=== PATIENT | female | born 1985 | race Hispanic/Latino ===

== ENCOUNTER 2020-01-02 20:44 | Observation (INO) | payer BC ==
[~2020-01-02] VITALS: Ht 167.6 cm; Wt 98.0 kg
[2020-01-02] MEDS ORDERED: LACTATED RINGERS 1000ML 1,000 ML IV PRN (21:06)
[2020-01-02 21:53] LABS: APPEARANCE,URINE Clear (CLEAR); BILIRUBIN,URINE Negative (NEGATIVE); COLOR,URINE Dark Yellow (YELLOW); GLUCOSE, URINE (UA) Negative (NEGATIVE); KETONES,URINE Negative (NEGATIVE); LEUKOCYTE ESTERASE ,URINE Large (NEGATIVE); NITRATE,URINE Negative (NEGATIVE); OCCULT BLOOD,URINE Negative (NEGATIVE); PH,URINE 6.5 (5.0-8.0); PROTEIN,URINE Negative (NEGATIVE)
[2020-01-02 22:00] LABS: AMPHET/METH SCREEN,URINE NEGATIVE (NEGATIVE); BARBITURATE SCREEN, URINE NEGATIVE (NEGATIVE); BENZODIAZEPINES SCREEN,URINE NEGATIVE (NEGATIVE); CANNABINOID SCREEN,URINE NEGATIVE (NEGATIVE); COCAINE SCREEN,URINE NEGATIVE (NEGATIVE); OPIATE SCREEN,URINE NEGATIVE (NEGATIVE); PHENCYCLIDINE SCREEN,URINE NEGATIVE (NEGATIVE)
[2020-01-02 22:04] LABS: RBC,URINE 0-1 /HPF (0-1)
[2020-01-02 22:05] LABS: BACTERIA,URINE Few /HPF (None Seen); SQUAMOUS EPITHELIAL CELL,UR Few /HPF (0-2)
[2020-01-02] MEDS ORDERED: CITRIC ACID/SODIUM CITRATE 30 ML UDCUP ONE (22:07)
[2020-01-02] MEDS ORDERED: CITRIC ACID/SODIUM CITRATE 30 ML UDCUP PO SCH (22:15)
== END 2020-01-02 23:00 | disposition home or self-care (01) ==
LOC: EDH 20:44 → LDH 21:12
PROVIDERS: ADMIT Obstetrics & Gynecology; ATTEND Obstetrics & Gynecology
DX: O26.893 Other specified pregnancy related conditions, third trimester (principal); R10.13 Epigastric pain; Z3A.38 38 weeks gestation of pregnancy
CPT/HCPCS: 80305; 81001; 87088; 99283; G0378 ×2

== ENCOUNTER 2020-03-19 01:55 | Inpatient (IN) | payer BC, MEDICAID ==
[~2020-03-19] VITALS: Ht 167.6 cm; Wt 103.4 kg
[2020-03-19 02:36] LABS: APPEARANCE,URINE Clear (CLEAR); BILIRUBIN,URINE Negative (NEGATIVE); COLOR,URINE Dark Yellow (YELLOW); GLUCOSE, URINE (UA) Negative (NEGATIVE); KETONES,URINE Negative (NEGATIVE); LEUKOCYTE ESTERASE ,URINE Moderate (NEGATIVE); NITRATE,URINE Negative (NEGATIVE); OCCULT BLOOD,URINE Large (NEGATIVE); PROTEIN,URINE POS 1+ mg/dL (NEGATIVE)
[2020-03-19 02:45] LABS: RBC,URINE 26-50 /HPF (0-1)
[2020-03-19 02:47] LABS: BACTERIA,URINE Moderate /HPF (None Seen)
[2020-03-19 03:12] VITALS: BP 139/97
[2020-03-19] MEDS ORDERED: ASCO500C18 PO (03:16)
[2020-03-19] MEDS ORDERED: PREN-196 PO (03:16)
[2020-03-19 03:23] LABS: BASOPHILS % (AUTO) 0.7 % (0.0-5.0); EOSINOPHILS % (AUTO) 0.4 % (0.0-8.0); HEMATOCRIT 39.4 % (36-48); LYMPHOCYTES % (AUTO) 20.8 % (21.0-51.0); MEAN CORPUSCULAR HEMOGLOBIN 29.7 pg (27.0-33.0); MEAN CORPUSCULAR VOLUME 87.4 fL (79-99); MONOCYTES % (AUTO) 7.4 % (3.0-13.0); NEUTROPHILS % (AUTO) 70.3 % (40.0-77.0); PLATELET COUNT (AUTO) 287 K/uL (130-400); RED BLOOD CELL COUNT(AUTO) 4.51 MIL/uL (4.00-5.50); WHITE BLOOD COUNT (AUTO) 10.6 K/uL (4.8-10.8)
[2020-03-19 03:39] LABS: ALBUMIN 2.6 g/dL (3.5-5.0); BILIRUBIN,TOTAL 0.9 mg/dL (0.2-1.0); CREATININE 0.8 mg/dL (0.5-1.5); POTASSIUM 4.2 mmol/L (3.5-5.1); TOTAL PROTEIN, SERUM 6.5 g/dL (6.0-8.3); URIC ACID 4.8 mg/dL (2.6-7.2)
[2020-03-19 03:56] LABS: INR 0.89 (0.85-1.15); PARTIAL THROMBOPLASTIN TIME 26.7 SEC (26.3-35.5); PROTHROMBIN TIME 9.7 SEC (9.6-11.6)
[2020-03-19] MEDS ORDERED: LACTATED RINGERS 1000ML 1,000 ML IV PRN (03:59)
[2020-03-19] MEDS ORDERED: ROPIVACAINE 0.2% 100ML VIAL 100 ML EP SCH (04:00)
[2020-03-19] MEDS ORDERED: NALOXONE HCL 0.4 MG/1 ML ML IV PRN (04:00)
[2020-03-19] MEDS ORDERED: BUTORPHANOL TARTRATE 2 MG/ML IVP PRN (04:00)
[2020-03-19] MEDS ORDERED: LACTATED RINGERS 500 ML 500 ML IV PRN (04:00)
[2020-03-19] MEDS ORDERED: EPHEDRINE SULFATE 50 MG/ML AMPULE IVP PRN (04:00)
[2020-03-19] MEDS: MISOPROSTOL 100 MCG TABLET VG SCH ×2 (04:18→20:35)
[2020-03-19] MEDS ORDERED: OXYTOCIN-LR 20 UNITS/1000 ML 1,000 ML IV SCH (14:15)
[2020-03-19] MEDS: LACTATED RINGERS 1000ML 1,000 ML IV SCH (23:30)
[2020-03-20] MEDS: MISOPROSTOL 100 MCG TABLET VG SCH ×3 (02:52→08:00)
[2020-03-20] MEDS: LACTATED RINGERS 1000ML 1,000 ML IV SCH (05:25)
[2020-03-20] MEDS ORDERED: OXYTOCIN 10 USP UNITS/ML 20 UNIT in LACTATED RINGERS 1000ML 1,000 ML IV SCH (07:00)
[2020-03-20 07:18] LABS: HEPATITIS Bs ANTIGEN SCREEN P Negative (Negative)
[2020-03-20] MEDS ORDERED: LACTATED RINGERS 1000ML 1,000 ML IV SCH ×2 (11:15→14:45)
[2020-03-20] MEDS ORDERED: METHYLERGONOVINE MALEATE 0.2 MG/1 ML ML IM PRN (11:15)
[2020-03-20] MEDS ORDERED: CALDOLOR 800MG+NS 250ML 250 ML IV PRN (11:15)
[2020-03-20] MEDS ORDERED: CEFAZOLIN SODIUM 1 GM VIAL IVP PRN ×2 (11:15→14:45)
[2020-03-20] MEDS ORDERED: DURAMORPH PF1 MG/ML 10ML AMP IV ONE (14:37)
[2020-03-20] MEDS ORDERED: FENTANYL CITRATE PF 50 MCG/1 ML 2ML VIAL ONE (14:37)
[2020-03-20] MEDS ORDERED: PROMETHAZINE HCL 25 MG/ML 1ML AMPULE IM PRN (14:45)
[2020-03-20] MEDS ORDERED: MEASLES/MUMPS/RUBELLA VACCINE, LIVE 0.5 ML/VIAL SQ SCH (14:45)
[2020-03-20] MEDS ORDERED: HYDROCODONE/ACETAMINOPHEN 5/325 MG TAB PO PRN (14:45)
[2020-03-20] MEDS ORDERED: OXYTOCIN-LR 20 UNITS/1000 ML 1,000 ML IV PRN (14:45)
[2020-03-20] MEDS ORDERED: BISACODYL 10 MG SUPP.RECT RC PRN (14:45)
[2020-03-20] MEDS ORDERED: DIPH,PERTUSS(ACELL),TET VAC/PF 0.5 ML VIAL IM PRN (14:45)
[2020-03-20] MEDS: IBUPROFEN 800 MG TAB PO SCH (14:45)
[2020-03-20] MEDS ORDERED: ACETAMINOPHEN-CODEINE 300/30MG TAB PO PRN (14:45)
[2020-03-20] MEDS ORDERED: ACETAMINOPHEN EXTRA STRENGTH 500 MG TABLET PO PRN (14:45)
[2020-03-20] MEDS ORDERED: MEASLES/MUMPS/RUBELLA VACCINE, LIVE 0.5 ML/VIAL SQ PRN (14:45)
[2020-03-20] MEDS ORDERED: DIPHENHYDRAMINE HCL 25 MG CAPSULE PO PRN (14:45)
[2020-03-20] MEDS ORDERED: DIPH,PERTUSS(ACELL),TET VAC/PF 0.5 ML VIAL IM SCH (14:45)
[2020-03-20] MEDS ORDERED: MEPERIDINE-PF 75 MG/ML SYG IM PRN (14:45)
[2020-03-20] MEDS ORDERED: DEXTROSE 5 %-0.45 % NACL 1,000 ML IV PRN (14:45)
[2020-03-20] MEDS ORDERED: LANOLIN 30GM OINTMENT TP PRN (14:45)
[2020-03-20] MEDS ORDERED: SODIUM CHLORIDE 0.9% 10 ML VIAL IVP PRN (14:45)
[2020-03-20] MEDS ORDERED: METOCLOPRAMIDE 10 MG/2 ML VIAL ONE ×2 (15:08→15:38)
[2020-03-20] MEDS ORDERED: PHENYLEPHRINE HCL 10 MG/ML 1ML VIAL IV ONE (15:38)
[2020-03-20] MEDS ORDERED: ONDANSETRON HCL 4 MG/2 ML VIAL IVP PRN (16:15)
[2020-03-20] MEDS ORDERED: NALOXONE HCL 0.4 MG/1 ML ML IVP PRN ×3 (16:15)
[2020-03-20] MEDS ORDERED: LORATADINE 10 MG TABLET PO PRN (16:15)
[2020-03-20 17:59] VITALS: BP 132/78
[2020-03-20 20:14] VITALS: BP 119/78
[2020-03-20] MEDS: DOCUSATE SODIUM 100 MG CAP PO SCH (20:49)
[2020-03-20] MEDS: SIMETHICONE 80 MG TAB.CHEW PO PRN (20:49)
[2020-03-20] MEDS: CALDOLOR 800MG+NS 250ML 250 ML IV SCH (23:02)
[2020-03-20 23:33] VITALS: BP 108/53
--- NOTE | 2020-03-21 02:45 | NUR ---
Receiving pt from Estephania Santoyo LVN. Pt awake & alert, denies pain or discomfort at present, IV D5 1/2 NS infusing without redness or edema to iv site. Luis care given & luis pads changed, fundus firm @[email or web address], incision without redness or edema noted, without discharge noted; informing normal rubra that will decrease each day, normal sensation of gushing with changing position or standing from lying position; pt voices understanding & agrees to plan. Encouraging to call for assistance, questions or concerns, to continue freq position change & offering pain meds as needed. Pt voices understanding denies need for pain med at present
[2020-03-21 03:41] VITALS: BP 117/69
--- NOTE | 2020-03-21 06:15 | NUR ---
Explaining plan for f/c removal, instructing to call with urge to void, pt agrees. F/C easily removed, 500ml urine noted; luis care given & changing luis pads, [email or web address] [email or web address], scant rubra noted.
[2020-03-21] MEDS: CALDOLOR 800MG+NS 250ML 250 ML IV SCH (06:21)
[2020-03-21] MEDS ORDERED: LORATADINE 10 MG TABLET PO PRN (06:30)
[2020-03-21] MEDS ORDERED: DiphenhydrAMINE HCL 50 MG/ML VIAL IVP PRN (06:30)
[2020-03-21] MEDS ORDERED: EPHEDRINE SULFATE 50 MG/ML AMPULE IVP PRN (06:30)
[2020-03-21] MEDS ORDERED: ONDANSETRON HCL 4 MG/2 ML VIAL IVP PRN (06:30)
[2020-03-21 07:41] VITALS: BP 130/80
[2020-03-21] MEDS: SIMETHICONE 80 MG TAB.CHEW PO PRN (08:02)
[2020-03-21] MEDS: DOCUSATE SODIUM 100 MG CAP PO SCH (08:02)
[2020-03-21] MEDS ORDERED: LIDOCAINE 5% TOPICAL PATCH TP SCH (09:00)
[2020-03-21 11:29] VITALS: BP 106/59
[2020-03-21] MEDS: IBUPROFEN 800 MG TAB PO SCH (15:07)
--- NOTE | 2020-03-21 19:45 | NUR ---
pt. and baby taken to car via wc by Karissa (PCP), pt. denied pain and discomfort.
== END 2020-03-21 20:00 | disposition home or self-care (01) | DRG 788 ==
LOC: EDH 01:55 → LDH 01:56 → OBSVTOIN 01:56 → WSH 03-20 18:01
PROVIDERS: ADMIT Obstetrics & Gynecology; ATTEND Obstetrics & Gynecology
PROC: 3E0234Z Introduction of Serum, Toxoid and Vaccine into Muscle, Percutaneous Approach (ICD-10-PCS; 2020-03-20)
PROC: 10D00Z1 Extraction of Products of Conception, Low, Open Approach (ICD-10-PCS; principal; 2020-03-20 14:50)
DX: O14.04 Mild to moderate pre-eclampsia, complicating childbirth (principal); Z3A.39 39 weeks gestation of pregnancy; Z37.0 Single live birth; Z23 Encounter for immunization; O62.2 Other uterine inertia
CPT/HCPCS: 36415; 59510; 80053; 81001; 84550; 85025; 85384; 85610; 85730; 86592; 86850; 86900; 86901; 87088; 87340; A4344; G0378; J0690; J1741; J2210; J2274; J2370; J2590; J2765; J3010; J7120

== ENCOUNTER 2020-04-16 05:58 | Day surgery (SDC) | payer BC ==
[~2020-04-16] VITALS: Ht 167.6 cm; Wt 89.8 kg
[2020-04-16] VITALS (20 sets, daily range): BP systolic 111–145; BP diastolic 70–92
[~2020-04-16 05:58] MED LIST: ASCO500C18 PO; PREN-196 PO
[2020-04-16] MEDS ORDERED: LACTATED RINGERS 1000ML 1,000 ML IV ONE (08:56)
[2020-04-16] MEDS ORDERED: SUCCINYLCHOLINE 200MG/10ML SYR ONE (09:54)
[2020-04-16] MEDS ORDERED: LIDOCAINE PF 2% 5ML ABBOJECT ONE (09:54)
[2020-04-16] MEDS ORDERED: DEXAMETHASONE SOD PHOSPHATE 10MG/ML 1ML VIAL ONE (09:54)
[2020-04-16] MEDS ORDERED: ONDANSETRON HCL 4 MG/2 ML VIAL ONE (09:55)
[2020-04-16] MEDS ORDERED: NEOSTIGMINE 5MG/5ML SYR IV ONE (09:55)
[2020-04-16] MEDS ORDERED: PROPOFOL 10 MG/ML 20ML VIAL IV ONE (09:55)
[2020-04-16] MEDS ORDERED: GLYCOPYRROLATE 1 MG/5 ML SYRINGE ONE (09:55)
[2020-04-16] MEDS ORDERED: FENTANYL CITRATE PF 50 MCG/1 ML 2ML VIAL ONE ×3 (09:56→10:45)
[2020-04-16] MEDS ORDERED: MIDAZOLAM HCL 1 MG/ML 2ML VIAL ONE (09:56)
[2020-04-16] MEDS ORDERED: ROCURONIUM 10MG/1ML SYR 10 MG/ML ML ONE (09:56)
[2020-04-16] MEDS ORDERED: BUPIVACAINE/PF 0.5% 10ML VIAL ONE ×2 (10:17→10:18)
[2020-04-16] MEDS ORDERED: CEFAZOLIN SODIUM 1 GM VIAL ONE (10:28)
--- NOTE | 2020-04-16 13:00 | NUR ---
AT 1300 PATIENT GOT DRESSED AND I ASSESSED HER ABD SITE POST SURGERY, PATIENT STATED SHE HAS A BULDING AREA IN ABOVE UMBILICAL AREA, WHEN I CHECKED NOTICE A HERNIA LIKE APPEARANCE AT THE ABOVE UMBILLICAL AREA , I NOTIFIED DOCTOR MAYE AND HE CAME TO EVALUATE PATIENT , PER MD OKAY TO PROCEED WITH DISCHARGE. DOCTOR SPOKE TO PATIENT AND NO CONCERNS VOICED AT 1400 DISCHARGE TIME.
== END 2020-04-16 14:00 | disposition home or self-care (01) ==
LOC: SUH 05:58 → DAH 05:58 → SUH 14:00
PROVIDERS: ATTEND Surgery
DX: K81.0 Acute cholecystitis (principal); Z20.828 Contact with and (suspected) exposure to other viral communicable diseases; K85.90 Acute pancreatitis without necrosis or infection, unspecified; E11.9 Type 2 diabetes mellitus without complications; E66.3 Overweight; Z98.890 Other specified postprocedural states; Z98.891 History of uterine scar from previous surgery; Z90.721 Acquired absence of ovaries, unilateral
CPT/HCPCS: 47562; 87426; A4215; A4221; A4223; A4649 ×2; A4663; A4930; C1769 ×3; J0330; J0690; J1100; J2001; J2250; J2405; J2704; J2710; J3010 ×3; J3490 ×3; J7030; J7120 ×2

== ENCOUNTER 2023-04-22 16:33 | Emergency (ER) | payer BC ==
[~2023-04-22] VITALS: Ht 167.6 cm; Wt 100.2 kg
[2023-04-22 16:50] VITALS: BP 124/77; PULSE 78; RESP 16; O2SAT 98
[2023-04-22 17:59] LABS: BASOPHILS # (AUTO) 0.09 K/uL (0.00-0.20); BASOPHILS % (AUTO) 0.9 % (0.0-5.0); EOSINOPHILS # (AUTO) 0.18 K/uL (0.00-0.70); EOSINOPHILS % (AUTO) 1.7 % (0.0-8.0); HEMATOCRIT 41.8 % (36-48); IMMATURE GRANULOCYTE ABSOLUTE 0.02 K/uL (0-1); LYMPHOCYTES # (AUTO) 3.7 K/uL (1.0-4.8); LYMPHOCYTES % (AUTO) 35.6 % (21.0-51.0); MEAN CORPUSCULAR HEMOGLOBIN 30.5 pg (27.0-33.0); MEAN CORPUSCULAR HGB CONC 33.7 g/dL (32.0-36.0); MEAN CORPUSCULAR VOLUME 90.5 fL (79-99); MONOCYTES # (AUTO) 0.8 K/uL (0.1-1.0); MONOCYTES % (AUTO) 8.1 % (3.0-13.0); NEUTROPHILS # (AUTO) 5.5 K/uL (1.8-7.7); NEUTROPHILS % (AUTO) 53.5 % (40.0-77.0); PLATELET COUNT (AUTO) 309 K/uL (130-400); RED BLOOD CELL COUNT(AUTO) 4.62 MIL/uL (4.00-5.50); RED CELL DISTRIBUTION WIDTH 12.3 % (11.0-15.5); WHITE BLOOD COUNT (AUTO) 10.4 K/uL (4.8-10.8)
[2023-04-22 18:36] LABS: ALBUMIN 3.8 g/dL (3.5-5.0); BILIRUBIN,TOTAL 0.3 mg/dL (0.2-1.0); CREATININE 0.9 mg/dL (0.5-1.5); TOTAL PROTEIN, SERUM 7.6 g/dL (6.0-8.3)
[2023-04-22 18:39] LABS: POTASSIUM 3.7 mmol/L (3.5-5.1)
[2023-04-22 18:44] LABS: APPEARANCE,URINE CLOUDY (CLEAR); BILIRUBIN,URINE NEGATIVE (NEGATIVE); COLOR,URINE LIGHT-YELLOW (YELLOW); GLUCOSE, URINE (UA) NEGATIVE (NEGATIVE); KETONES,URINE NEGATIVE (NEGATIVE); LEUKOCYTE ESTERASE ,URINE 500 Leu/uL (NEGATIVE); NITRATE,URINE NEGATIVE (NEGATIVE); OCCULT BLOOD,URINE SMALL (NEGATIVE); PROTEIN,URINE NEGATIVE (NEGATIVE); UROBILINOGEN,URINE 0.2 mg/dL (0.2-1.0)
[2023-04-22 18:48] LABS: ADD UA MICROSCOPIC YES
[2023-04-22 18:51] LABS: BACTERIA,URINE RARE /HPF (None Seen); MUCUS,URINE RARE LPF (None Seen); SQUAMOUS EPITHELIAL CELL,UR FEW /HPF (0-2); YEAST,URINE BUDDING FEW /HPF (None Seen)
[2023-04-22] MEDS ORDERED: CEPH500B PO (20:07)
== END 2023-04-22 20:25 | disposition home or self-care (01) ==
LOC: EDH 16:33
DX: O20.0 Threatened abortion (principal); O23.41 Unspecified infection of urinary tract in pregnancy, first trimester; N39.0 Urinary tract infection, site not specified; Z3A.10 10 weeks gestation of pregnancy; Z90.49 Acquired absence of other specified parts of digestive tract
CPT/HCPCS: 36415; 76801; 80053; 81001; 84702; 85025; 86900; 86901; 87088

== ENCOUNTER 2023-04-28 07:12 | Emergency (ER) | payer BC, MEDICAID ==
[~2023-04-28] VITALS: Ht 167.6 cm; Wt 102.1 kg
[~2023-04-28 07:12] MED LIST changes: +CEPH500B PO
[2023-04-28 07:27] LABS: MEAN CORPUSCULAR HEMOGLOBIN 30.4 pg (27.0-33.0); MEAN CORPUSCULAR HGB CONC 33.8 g/dL (32.0-36.0); MEAN CORPUSCULAR VOLUME 90.1 fL (79-99); RED BLOOD CELL COUNT(AUTO) 4.44 MIL/uL (4.00-5.50); RED CELL DISTRIBUTION WIDTH 12.4 % (11.0-15.5); WHITE BLOOD COUNT (AUTO) 11.4 K/uL (4.8-10.8)
[2023-04-28 07:46] LABS: ALBUMIN 3.6 g/dL (3.5-5.0); BILIRUBIN,TOTAL 0.5 mg/dL (0.2-1.0); CREATININE 0.8 mg/dL (0.5-1.5); POTASSIUM 4.1 mmol/L (3.5-5.1); TOTAL PROTEIN, SERUM 7.1 g/dL (6.0-8.3)
[2023-04-28] MEDS ORDERED: LACTATED RINGERS 1000ML 1,000 ML IV ONE (08:00)
[2023-04-28 11:18] VITALS: BP 105/70; PULSE 71; RESP 16; O2SAT 98
== END 2023-04-28 11:44 | disposition home or self-care (01) ==
LOC: EDH 07:12
DX: O03.9 Complete or unspecified spontaneous abortion without complication (principal); Z3A.01 Less than 8 weeks gestation of pregnancy; Z90.49 Acquired absence of other specified parts of digestive tract
CPT/HCPCS: 99284; 96360; 76801; 96361; 80053; 84702; 85027; 36415; 88305; J7120

== ENCOUNTER 2025-04-14 12:41 | Emergency (ER) | payer BC, MEDICAID ==
[~2025-04-14] VITALS: Ht 167.6 cm; Wt 106.6 kg
[2025-04-14 12:48] VITALS: BP 163/99; PULSE 73; RESP 20; TEMP 98; O2SAT 97
--- NOTE | 2025-04-14 12:49 | ERN ---
ED Note History of Present Illness Stated Complaint: VAGINAL SPOTTING,OB <20 WEEKS Chief Complaint: Vaginal Bleeding Time Seen by MD: 12:46 Dictation: PATIENT IS A 39-YEAR-OLD FEMALE STATES SHE IS APPROXIMATELY SEVEN WEEKS . SHE STATES SHE HAS BEEN HAVING VAGINAL SPOTTING FOR THE LAST 2-3 DAYS. SHE STATES SHE IS A PATIENT OF DR. SHARI MOSER IN HIS NOT HAD HER 1ST VISIT YET. SHE STATES SHE HAS TAKEN VITAMINS [id number]. Allergies: Coded Allergies: No Known Drug Allergies (Unverified Allergy, Unknown, 01/02/20) Home Meds Active Scripts Cephalexin Monohydrate (Keflex) 500 Mg Cap, 500 MG PO BID for 7 Days, #14 CAP Prov:ESPERANZA MARRUFO PAC 04/22/23 Reported Medications Ascorbic Acid (Vitamin C) 500 Mg Capsule, 500 MG PO DAILY, CAP 03/19/20 Vit No.124/Iron/FA ( Vitamin Tablet) 1 Each Tablet, 1 EACH PO DAILY, TAB 03/19/20 Past Medical History Past Medical History: No Pertinent History Surgical History: Cholecystectomy, LMP: Feb 21, 2025 : 3 Para: 1 Aborts: 1 RN Note Reviewed/Agreed w/PFSH: Yes Review of System Dictation CONSTITUTIONAL: NEGATIVE EXCEPT FOR HPI HEAD/FACE: NEGATIVE EXCEPT FOR HPI EENT: NEGATIVE EXCEPT FOR HPI RESPIRATORY: NEGATIVE EXCEPT FOR HPI GASTROINTESTINAL/ABDOMINAL: NEGATIVE EXCEPT FOR HPI GENITOURINARY: NEGATIVE EXCEPT FOR HPI VAGINAL SPOTTING MUSCULOSKELETAL: NEGATIVE EXCEPT FOR HPI INTEGUMENTARY: NEGATIVE EXCEPT FOR HPI NEUROLOGICAL/PSYCH: NEGATIVE EXCEPT FOR HPI HEMATOLOGIC/LYMPHATIC: NEGATIVE EXCEPT FOR HPI ALL SYSTEMS NEGATIVE, EXCEPT NOTED ABOVE. 13 POINT REVIEW OF SYSTEMS ASSESSED AND ALL NEGATIVE EXCEPT FOR ABOVE. Initial Vital Sign VS Vital Signs Date Time Temp Pulse Resp B/P (MAP) Pulse Ox O2 Delivery O2 Flow Rate FiO2 04/14/25 12:42 98.1 73 20 163/99 97 04/14/25 12:48 Room Air* 0 21 Physical Exam Dictation VITAL SIGNS REVIEWED GENERAL APPEARANCE: ALERT, ORIENTED X 3, NO ACUTE DISTRESS, WELL DEVELOPED, NOURISHED. HEAD AND FACE: NON-TRAUMATIC. EYES: PERRL, PINK CONJUNCTIVAS, EYELID NO TRAUMA, ANTERIOR CHAMBER WITH ARCUS SENILIS. EARS: PINNAS INTACT AND NO SIGNS OF TRAUMA OR ERYTHEMA EAR CANALS CLEAR AND NO DISCHARGE TM NO ERYTHEMA NOSE: NO DISCHARGE, NO BLEEDING. OROPHARYNX: MOUTH NORMAL, TONGUE PINK, PHARYNX CLEAR,NO ERYTHEMA, TONSILS NO EXUDATES, NO ABSCESSES NOTED, MUCOUS MEMBRANE MOIST NECK: SUPPLE, NON-TENDER, NO THYROMEGALY, NO MASSES, NO JVD, NO BRUITS BREAST:DEFERRED CHEST:NO TENDERNESS, NO CREPITUS, NO PARADOXICAL MOVEMENT, NO RETRACTIONS LUNGS:CLEAR, WELL-VENTILATED, SYMMETRIC, NO RALES, NO WHEEZING, NO RHONCHI, NO STRIDOR, GOOD BREATH SOUNDS BILATERALLY HEART: REGULAR RATE, REGULAR RHYTHM, NO MURMUR, NO GALLOPS VASCULAR: NO PERIPHERAL EDEMA, ABDOMEN: SOFT, POSITIVE BOWEL SOUNDS, NONDISTENDED, NO GUARDING, NONTENDER, NO REBOUND, NO MASSES NO HEPATOMEGALY, NO SPLENOMEGALY, NO VELÁZQUEZ'S SIGN, NO HERNIAS. RECTAL: DEFERRED GENITAL: DEFERRED NEUROLOGICAL: NORMAL SPEECH, MOTOR FUNCTION INTACT, SENSORY FUNCTION INTACT MUSCULOSKELETAL: NECK NONTENDER, FULL RANGE OF MOTION, BACK NONTENDER, FULL RANGE OF MOTION, EXTREMITIES: NONTENDER, FULL RANGE OF MOTION SKIN: COLOR PINK, DRY, NO TURGOR, NO RASH, NO LACERATIONS, NO ABRASIONS, NO CONT USIONS. LYMPHATIC: DEFERRED Results (Laboratory/Radiology) Laboratory/Radiology Laboratory Tests Test 04/14/25 12:54 White Blood Count 9.3 K/uL (4.8-10.8) Red Blood Count 4.56 MIL/uL (4.00-5.50) Hemoglobin 13.9 g/dL (12.0-16.0) Hematocrit 41.4 % (36-48) Mean Corpuscular Volume 90.8 fL (79-99) Mean Corpuscular Hemoglobin 30.5 pg (27.0-33.0) Mean Corpuscular Hemoglobin Concent 33.6 g/dL (32.0-36.0) Red Cell Distribution Width 12.4 % (11.0-15.5) Platelet Count 293 K/uL (130-400) Mean Platelet Volume 8.8 fL (7.5-10.5) Immature Granulocyte % (Auto) 0.2 % (0-1) Neutrophils (%) (Auto) 54.3 % (40.0-77.0) Lymphocytes (%) (Auto) 36.0 % (21.0-51.0) Monocytes (%) (Auto) 7.1 % (3.0-13.0) Eosinophils (%) (Auto) 1.7 % (0.0-8.0) Basophils (%) (Auto) 0.7 % (0.0-5.0) Neutrophils # (Auto) 5.1 K/uL (1.8-7.7) Lymphocytes # (Auto) 3.4 K/uL (1.0-4.8) Monocytes # (Auto) 0.7 K/uL (0.1-1.0) Eosinophils # (Auto) 0.16 K/uL (0.00-0.70) Basophils # (Auto) 0.07 K/uL (0.00-0.20) Absolute Immature Granulocyte (auto 0.02 K/uL (0-1) Nucleated Red Blood Cells 0.0 % (0.0-0.19) Sodium Level 141 mmol/L (136-145) Potassium Level 4.6 mmol/L (3.5-5.1) Chloride Level 104 mmol/L (101-111) Carbon Dioxide Level 27 mmol/L (21-32) Blood Urea Nitrogen 18 mg/dL (7-18) Creatinine 0.7 mg/dL (0.5-1.0) Glomerular Filtration Rate Calc 113 mL/min (>90) Random Glucose 102 mg/dL (70-105) Total Calcium 8.7 mg/dL (8.5-10.1) Human Chorionic Gonadotropin, Quant 92 mIU/mL (0-5) H 1310/OB ULTRASOUND DEMONSTRATES THERE WAS NO IUP, NO SAC Labs Reviewed?: Yes ED Course ED Course Orders Procedure Category Date Status Time Cbc With Differential LAB 04/14/25 Complete 12:48 Hcg,Quantitative LAB 04/14/25 Complete 12:48 Us Ob <14 Weeks US 04/14/25 Taken 12:48 Type And Screen BBK 04/14/25 In Process 12:48 Basic Metabolic Panel LAB 04/14/25 Complete 12:48 Vital Signs Date Time Temp Pulse Resp B/P (MAP) Pulse Ox O2 Delivery O2 Flow Rate FiO2 04/14/25 12:48 98.1 73 20 163/99 97 Room Air* 0 21 04/14/25 12:42 98.1 73 20 163/99 97 1330/PATIENT HAS A QUANT OF 92, NO IUP. THE DIAGNOSIS IS BLIGHTED OVUM PATIENT WILL BE REFERRED BACK TO SHARI MOSER Medical Decision Making MDM MDM: DIFFERENTIAL DIAGNOSIS: ANEMIA/ELECTROLYTE IMBALANCE/MISCARRIAGE/INCOMPLETE MISCARRIAGE/BLIGHTED OVUM RATIONALE: TESTS CONSIDERED AND ORDERED SECONDARY TO SHARED DECISION MAKING INCLUDE: ULTRASOUND/LABS PREVIOUS OUTSIDE RECORDS REVIEWED: OLD ER VISITS. RISK OF COMPLICATION AND/OR MORBIDITY OR MORTALITY OF PATIENT MANAGEMENT: NONE MEDICATIONS-PER MEDICATION RECONCILIATION NEED FOR HOSPITALIZATION: PATIENT DOES NOT MEET CRITERIA FOR HOSPITALIZATION. NONE NEED FOR EMERGENCY MAJOR/MINOR SURGERY: NO THERE ARE NO SOCIAL CONCERNS WITH THIS PATIENT. PRESCRIPTION DRUG MANAGEMENT NONE PRESCRIPTIONS WILL INCLUDE SYMPTOMATIC CARE PATIENT'S PRIOR EXTERNAL MEDICAL RECORDS FROM OTHER ER VISITS WERE REVIEWED BY ME INDICATED. PRIOR TESTING AND RESULTS FROM PREVIOUS VISITS WERE REVIEWED. PRIOR TESTS WERE TAKEN INTO ACCOUNT WITH MEDICAL DECISION MAKING AND RESOURCE UTILIZATION, INDEPENDENT HISTORIAN/HISTORIANS WERE USED TO OBTAIN COMPLETE MEDICAL HISTORY. I INDEPENDENTLY INTERPRETED THE TEST THAT WERE PERFORMED, RESULTS WERE REVIEWED BY ME AND CONSIDERED FINDINGS ON RADIOLOGY IF ORDERED. MEDICAL MANAGEMENT AND EXAMINATION INTERPRETATION DISCUSSIONS WERE HAD BY ME WITH OTHER QUALIFIED HEALTHCARE PROFESSIONALS INDICATED FOR THE PATIENT'S CARE. DX & DISP Disposition: Discharge Departure Impression: Primary Impression: Blighted ovum Condition: Stable Additional Instructions: FOLLOW-UP WITH PRIMARY CARE PROVIDER IN 1 TO 2 DAYS. TAKE MEDICATIONS DIRECTED HERE IN THE EMERGENCY ROOM. OKAY TO CONTINUE HOME MEDICATIONS UNLESS OTHERWISE DISCUSSED DURING YOUR VISIT IN THE EMERGENCY ROOM TODAY. RETURN TO YOUR NEAREST EMERGENCY ROOM IF SYMPTOMS WORSEN OR IF THERE IS NO IMPROVEMENT. CALL 911 IF YOU NEED IMMEDIATE ASSISTANCE. TAKE TYLENOL OR MOTRIN [id number] NEEDED AND IF NO CONTRAINDICATIONS ARE PRESENT. INCREASE ORAL HYDRATION. A WOUND CULTURE OR URINE CULTURE WAS ORDERED HERE IN THE EMERGE [facility] ROOM DEPARTMENT PLEASE FOLLOW-UP WITH PRIMARY CARE PROVIDER AND ADVISE THEM TO GET REPEAT PORTS FROM OUR FACILITY. IF YOU HAD ANY FELIPE WRAP/SPLINTS THAT WERE APPLIED HERE, PLEASE DO NOT REMOVE THEM UNTIL YOU SEE YOUR PRIMARY CARE OR SPECIALTY. FOLLOW UP WITH DR. SHARI MOSER IN THE NEXT 1-2 DAYS. CONTINUE VITAMINS UNTIL CLEARED BY DR. MOSER Referrals: JANET ORTIZ DO (PCP) Time of Disposition: 13:30 I have reviewed the case, and I agree with, Diagnosis and Plan TAMMI HERNANDEZP Apr 14, 2025 12:49
[2025-04-14 13:02] LABS: IMMATURE GRANULOCYTE ABSOLUTE 0.02 K/uL (0-1); NUCLEATED RED BLOOD CELLS 0.0 % (0.0-0.19); PLATELET COUNT (AUTO) 293 K/uL (130-400); RED BLOOD CELL COUNT(AUTO) 4.56 MIL/uL (4.00-5.50); RED CELL DISTRIBUTION WIDTH 12.4 % (11.0-15.5); WHITE BLOOD COUNT (AUTO) 9.3 K/uL (4.8-10.8)
[2025-04-14 13:13] LABS: CREATININE 0.7 mg/dL (0.5-1.0); GLOMERULAR FILTR. RATE CALC 113.0 mL/min (>90); GLUCOSE,RANDOM 102.0 mg/dL (70-105); SODIUM SERUM 141.0 mmol/L (136-145); UREA NITROGEN, BLOOD 18.0 mg/dL (7-18)
[2025-04-14 13:24] LABS: HCG,QUANTITATIVE 92.0 mIU/mL (0-5)
--- NOTE | 2025-04-14 13:33 | HMCIMG ---
TRANSABDOMINAL AND TRANSVAGINAL PELVIC ULTRASOUND; DATED 04/14/2025 12:27 PM MDT. CLINICAL INDICATION : VAGINAL SPOTTING THREE DAYS NO CARE COMPARISON: None available FINDINGS: There is no evidence of any intrauterine The uterus is anteverted with normal shape. It measures 9.7 x 5.9 x 6.6 cm in its maximum length, anteroposterior and transverse dimensions. The myometrium is homogeneous and there is no evidence of focal or diffuse lesions. The endometrial stripe measures 1.3 cm. The cervix is closed. Both ovaries appear normal with normal flow on color and Spectral Doppler. The right ovary is surgically absent. The left ovary measures 3 x 1.6 x 3 cm ml. No adnexal masses. No free fluid or collections. Urinary bladder appears normal. IMPRESSION: 1. No evidence of any intrahepatic . 2. I would recommend correlation with beta hCG and a follow-up sonogram and ultrasound. I have reviewed the images and agree with the findings and conclusions reported above.
== END 2025-04-14 13:41 | disposition home or self-care (01) ==
LOC: EDH 12:41
DX: O02.0 Blighted ovum and nonhydatidiform mole (principal); Z98.890 Other specified postprocedural states; Z90.49 Acquired absence of other specified parts of digestive tract; Z79.899 Other long term (current) drug therapy; Z3A.01 Less than 8 weeks gestation of pregnancy
CPT/HCPCS: 36415; 76801; 80048; 84702; 85025; 86850; 86900; 86901; 99284